=== PATIENT | male | born 1990 | race Caucasian/White ===

== ENCOUNTER 2025-04-19 11:37 | Emergency (ER) | payer MEDICAID ==
[~2025-04-19] VITALS: Ht 182.9 cm; Wt 87.1 kg
[2025-04-19] MEDS ORDERED: Ketorolac Tromethamine 15mg Vial IM ONE (12:05)
[2025-04-19] MEDS ORDERED: Roxicodone5 MG PO (12:52)
== END 2025-04-19 13:20 | disposition home or self-care (01) ==
LOC: ER 11:37
DX: S92.002A Unspecified fracture of left calcaneus, initial encounter for closed fracture (principal); M97.22XA Periprosthetic fracture around internal prosthetic left ankle joint, initial encounter; M25.571 Pain in right ankle and joints of right foot; X58.XXXA Exposure to other specified factors, initial encounter
CPT/HCPCS: 73610; 96372; 99283-25; J1885

== ENCOUNTER → 2025-05-30 | Outpatient (CLI) | payer OTHER | LOC: LAB 13:58 | DX: B20 Human immunodeficiency virus [HIV] disease (principal) ==